=== PATIENT | male | born 1965 | race African-American/Black ===

== ENCOUNTER 2016-12-16 09:20 | Emergency (ER) | payer SELFPAY ==
[~2016-12-16] VITALS: Ht 182.9 cm; Wt 90.3 kg
[2016-12-16] MEDS ORDERED: ALBUTEROL SULFATE 2.5 MG/3 ML NEBU. NEB ONE (10:00)
--- NOTE | 2016-12-16 10:22 | RAD ---
EXAM: Chest, 2 views. HISTORY: Cough. COMPARISON: None. FINDINGS: Frontal and lateral views of the chest are obtained. There is no infiltrate, effusion or pneumothorax. The heart is normal in size. There are bridging osteophytes throughout the thoracic spine. IMPRESSION: No acute pulmonary finding.
[2016-12-16 10:28] LABS: OBC FLU VALID
--- NOTE | 2016-12-16 10:33 | PHYS DOC ---
Past Medical History Past Medical History: Hypertension, Seizure Past Surgical History: Appendectomy Additional Information: nonsmoker Alcohol Use: Heavy Drug Use: None Adult General Chief Complaint Chief Complaint: Congestion HPI HPI Patient is a 51 year old male who presents with cough and nasal congestion for 3 days. He reports fever up to 102F at home. He's had sore throat with productive cough and shortness of breath. He's had posttussive emesis. He denies otalgia or abdominal pain. He did not receive a flu shot. He denies any known sick contacts. He sees a PCP at [facility]. Review of Systems Review of Systems Constitutional: Reports fever. Eyes: Denies change in visual acuity, redness, or eye pain. [] HENT: Denies ear pain. Reports sore throat and nasal congestion. Respiratory: Reports productive cough and shortness of breath. Cardiovascular: Denies chest pain, palpitations or edema. [] GI: Denies abdominal pain, nausea, bloody stools or diarrhea. Reports posttussive emesis. : Denies dysuria, hematuria or urinary frequency. [] Musculoskeletal: Denies back pain or joint pain. [] Integument: Denies rash or skin lesions. [] Neurologic: Denies headache, focal weakness or sensory changes. [] Endocrine: Denies polyuria or polydipsia. [] Psych: Denies anxiety or depression. [] All systems reviewed and negative unless otherwise stated in the HPI. Current Medications Current Medications Current Medications Medications (Trade) Dose Ordered Sig/Dinah Start Time Stop Time Status Last Admin Dose Admin Albuterol Sulfate (Ventolin Neb Soln) 2.5 mg 1X ONCE 12/16/16 10:00 12/16/16 10:01 DC 12/16/16 09:56 2.5 MG Allergies Allergies Allergies Coded Allergies Type Severity Reaction Last Updated Verified No Known Drug Allergies 05/12/14 No Physical Exam Physical Exam Constitutional: Well developed, well nourished, no acute distress, non-toxic appearance. [] HENT: Normocephalic, atraumatic, bilateral external ears normal, oropharynx moist, no oral exudates, nose normal. Bilateral TMs without erythema or bulging. There is no posterior pharyngeal erythema or tonsillar edema. Bilateral nasal turbinates are swollen and erythematous with purulent drainage. Eyes: PERRLA, EOMI, conjunctiva normal, no discharge. [] Neck: Normal range of motion, no tenderness, supple, no stridor. [] Cardiovascular: Heart rate regular rhythm, no murmur [] Lungs & Thorax: Bilateral breath sounds clear to auscultation without wheezes, rales, or rhonchi. Abdomen: Bowel sounds normal, soft, no tenderness, no masses, no pulsatile masses. [] Skin: Warm, dry, no erythema, no rash. [] Neurologic: Alert and oriented X 3, normal motor function, normal sensory function, no focal deficits noted. [] Psychologic: Affect normal, judgement normal, mood normal. [] Current Patient Data Vital Signs Vital Signs Date Time Temp Pulse Resp B/P Pulse Ox O2 Delivery O2 Flow Rate FiO2 12/16/16 11:17 100 18 111/67 100 Room Air 12/16/16 09:30 99.7 99.7 Lab Values Laboratory Tests Test 12/16/16 09:57 Influenza Type A Antigen Negative (NEGATIVE) Influenza Type B Antigen Negative (NEGATIVE) EKG EKG [] Radiology/Procedures Radiology/Procedures REASON: cough, soa PROCEDURE: CHEST PA & LATERAL EXAM: Chest, 2 views. HISTORY: Cough. COMPARISON: None. FINDINGS: Frontal and lateral views of the chest are obtained. There is no infiltrate, effusion or pneumothorax. The heart is normal in size. There are bridging osteophytes throughout the thoracic spine. IMPRESSION: No acute pulmonary finding. Course & Med Decision Making Course & Med Decision Making Pertinent Labs and Imaging studies reviewed. (See chart for details) At discharge the patient mentioned to his nurse that he has had an itchy rash for the last 6-8 months. The rash is mainly on his right arm but he has scattered lesions on his back, chest, and left arm as well. He was seen previously and it was thought to be due to an allergic reaction. Patient has been on steroids for his temporal arteritis during the time in which he has had the rash without improvement in the rash. He states that the itching is worse at night and new spots appear in the morning. His significant other, with whom he shares a bed, does not have any rash. There are scattered scabbed and scarred lesions predominantly on the right arm but also on the left arm, chest, abdomen, and back. A few are in a linear pattern that may be consistent with scabies. The rash does not have a pattern characteristic of any other rash, especially given that it did not respond to previous steroids. I offered a prescription for permethrin cream for the patient to try. He is also instructed to wash the bed linens in hot water during the treatment. A handwritten prescription for permethrin was provided. Dragon Disclaimer Dragon Disclaimer This electronic medical record was generated, in whole or in part, using a voice recognition dictation system. Departure Departure Impression: Primary Impression: URI (upper respiratory infection) Additional Impressions: Acute bronchitis Rash Scabies Disposition: HOME, SELF-CARE Condition: STABLE Referrals: NON,STAFF (PCP) Patient Instructions: Acute Bronchitis, [id number], Upper Respiratory Infection, Adult, [id number] Additional Instructions: Your flu test was negative today. Your chest x-ray does not show pneumonia. You appear to have a viral infection causing your symptoms. Antibiotics do not help with viral infections. Please complete all the prescribed steroids, even if you're feeling better. Please use the prescribed inhaler as needed for cough or shortness of breath. Do not use more often than directed. Please follow-up with your primary care provider if your symptoms continue. Return to emergency department if you have high fever not responding to medication, increased difficulty breathing, difficulty swallowing, or other new or concerning symptoms. Scripts Benzonatate 200 Mg Capsule1 Cap PO TID #30 CAP Prov:LEEROY PERALES 12/16/16 Prednisone 20 Mg [id number] Mg PO DAILY 5 Days Prov:LEEROY PERALES 12/16/16 Albuterol Sulfate (Proair Hfa Inhaler)8.5 Gm [id number] Puff INH Q4HRS PRN SHORTNESS OF BREATH #1 INHALER Prov:LEEROY PERALES 12/16/16 Problem Qualifiers Primary Impression: URI (upper respiratory infection) URI type: unspecified viral URI Qualified Code: J06.9 - Acute upper respiratory infection, unspecified Additional Impressions: Acute bronchitis Bronchitis organism: unspecified organism Qualified Code: J20.9 - Acute bronchitis, unspecified LEEROY PEARLES Dec 16, 2016 10:33
[2016-12-16] MEDS ORDERED: BENZ200C39 PO (11:06)
[2016-12-16] MEDS ORDERED: PRED20TA PO (11:06)
[2016-12-16] MEDS ORDERED: PROAIR HFA8.5 GM INH (11:06)
[2016-12-16 11:17] VITALS: BP 111/67
== END 2016-12-16 11:23 | disposition home or self-care (01) ==
LOC: ER 09:20
DX: J06.9 Acute upper respiratory infection, unspecified (principal); J20.9 Acute bronchitis, unspecified; B86 Scabies; I10 Essential (primary) hypertension; F10.10 Alcohol abuse, uncomplicated
CPT/HCPCS: 71020; 87804; 94250; 94640; 99285-25

== ENCOUNTER → 2020-05-31 | Outpatient (CLI) | payer OTHER ==
[~2020-05-31] MED LIST: ALBU2.5V8 INH; BENZ200C47 PO; PRED20TA PO
--- NOTE | 2020-05-31 11:05 | RAD ---
Examination: ABDOMEN COMPLETE History: Reason: Chronic Kidney Disease; Abnormal LFT's / Spl. Instructions: / History: Comparison/Correlation: None Findings: Diffuse fatty infiltration of the liver is present. Liver length is 15.55 cm. Gallbladder wall thickness is 0.1 centimeter. No cholelithiasis or findings of cholecystitis. Hepatopedal portal venous flow seen. Hepatic venous flow is seen. Right kidney measures 11.2 cm x 5.1 CM x 4.7 cm. Left kidney measures 11.3 cm x 4.8 cm by 5.5 cm. No hydronephrosis. Renal contours and echotexture are normal. Normal cortical thickness bilaterally. The proximal pancreas is partially visualized and unremarkable. Distal pancreas is obscured by bowel gas. Spleen is unremarkable measuring 10.5 cm longitudinal but it is not well visualized. Abdominal aorta and inferior vena cava are only partially visualized. Visualized portions are unremarkable. No upper abdominal ascites. Impression: Fatty infiltration of the liver. Electronically signed by: Iam Huston MD (05/31/2020 11:01 AM) [id number]
== END | disposition home or self-care (01) ==
LOC: US 10:21
PROVIDERS: ATTEND Family Medicine
DX: K76.0 Fatty (change of) liver, not elsewhere classified (principal); N18.9 Chronic kidney disease, unspecified
CPT/HCPCS: 76700